=== PATIENT | female | born 1990 | race Caucasian/White ===

== ENCOUNTER 2024-04-30 17:25 | Emergency (ER) | payer MEDICAID, OTHER ==
[~2024-04-30] VITALS: Ht 165.1 cm; Wt 63.0 kg
[~2024-04-30 17:25] MED LIST: FERR1TAB51 PO; PREN1TAB23 PO
[2024-04-30 17:26] VITALS: BP 117/75; PULSE 98; RESP 16; TEMP 98.6; O2SAT 98
== END 2024-04-30 18:40 | disposition left against medical advice (07) ==
LOC: ER 17:25
DX: R10.9 Unspecified abdominal pain (principal); Z53.21 Procedure and treatment not carried out due to patient leaving prior to being seen by health care provider